=== PATIENT | male | born 1950 | race Caucasian/White ===

== ENCOUNTER → 2018-08-21 12:44 | Outpatient (CLI) | payer MEDICARE, SELFPAY ==
--- NOTE | 2018-08-21 14:02 | CDU_ITS ---
Reason For Study: Carotid bruit Rt. Velocities/BP Lt. Velocities/BP Prox CCA 78.0/19.3 cm/sec. Prox CCA 118.0/25.1 cm/sec. Mid CCA 97.9/22.3 cm/sec. Mid CCA 105.0/21.2 cm/sec. Dist CCA 104.0/29.9 cm/sec. Dist CCA 127.0/33.0 cm/sec. Prox ICA 236.0/44.0 cm/sec. Prox ICA 281.0/42.4 cm/sec. Mid ICA 141.0/21.2 cm/sec. Mid ICA 150.0/29.5 cm/sec. Dist ICA 99.0/15.7 cm/sec. Dist ICA 92.2/19.3 cm/sec. Rt. ICA/CCA = 2.4. Lt. ICA/CCA = 2.7. Prox ECA 237.0/28.3 cm/sec. Prox ECA 302.0/34.6 cm/sec. Rt. Vert. 25.1/6.7 cm/sec. Lt. Vert. 56.1/13.6 cm/sec. Right Extracranial There is heterogeneous, irregular atherosclerotic plaque noted in the right common carotid artery. There is heterogeneous, irregular atherosclerotic plaque noted in the right internal carotid artery. There is heterogeneous, irregular atherosclerotic plaque noted in the right external carotid artery. Antegrade flow is noted in the right vertebral artery. Left Extracranial There is heterogeneous, irregular atherosclerotic plaque noted in the left common carotid artery. There is heterogeneous, irregular atherosclerotic plaque noted in the left internal carotid artery. There is heterogeneous, irregular atherosclerotic plaque noted in the left external carotid artery. Antegrade flow is noted in the left vertebral artery. Procedure Carotid Duplex [id number]. Difficult exam due to depth of vessels. Exam performed in department. Interpretation Summary Moderate (50-69%) stenosis right extracranial internal carotid. Moderate (50-69%) stenosis left extracranial internal carotid. Flow within the vertebral arteries is antegrade bilaterally. Ordering Physician: Nani Santillan Referring Physician: Nani Santillan Performed By: Claudia Small RVT
== END ==
PROVIDERS: Family Provider Family Medicine; PCP Family Medicine; Referring Provider Physician Assistant Medical; Visit Provider Physician Assistant Medical
DX: R09.89 Other specified symptoms and signs involving the circulatory and respiratory systems (principal)
CPT/HCPCS: 93880

== ENCOUNTER → 2019-05-05 06:18 | Outpatient (CLI) | payer MEDICARE, SELFPAY ==
[2019-04-08 13:04] VITALS: BMI 38.5
--- NOTE | 2019-05-05 09:35 | STRESSREP ---
Stress Test Report Pharmacologic myocardial perfusion stress test. 69-year-old male with a history of bypass surgery in 2000 with a left internal mammary artery to the left anterior descending artery, saphenous vein graft to posterior descending artery and posterolateral branch of the circumflex artery. Stress protocol: Resting EKG demonstrates sinus bradycardia with a rate of 60 bpm and frequent premature ventricular complexes. Nonspecific ST changes are noted. 0.4 mg of regadenoson was infused per usual protocol followed by rapid intravenous saline flush injection. Continuous EKG monitoring was performed. The patient maintained sinus rhythm throughout the recording. The resting blood pressure was 152/78. The maximum heart rate was 85 bpm which was 55% of maximum predicted heart rate and maximum workload was [address]-T wave changes were noted throughout the infusion. Myocardial perfusion protocol. 14.4 mCi of technetium 99m sestamibi was injected at rest. 0.4 mg of regadenoson was infused per usual protocol. The peak infusion 44.7 mCi of technetium 99m sestamibi was injected stress images were obtained stress and rest images were reconstructed and compared in the short axis vertical and horizontal long axis. Gated images were also obtained for next Perfusion SPECT analysis: Review of the stress images demonstrate normal cardiac silhouette size. The mid anterior septal wall and basal to mid inferior wall on the stress images demonstrate reduced perfusion. The mid septum in the mid lateral wall appeared to be well perfused. The resting images demonstrate improvement in the inferior apical wall as well as the mid anteroseptal wall. The above is suggestive of multi territory ischemia involving the mid anterior septum and mid inferior wall. Gated SPECT analysis: The gated ejection fraction is noted to be 58%. Conclusion Abnormal pharmacologic myocardial perfusion stress test with evidence of mid anteroseptal and mid inferior ischemia. Previous basal inferior infarct noted. Preserved ejection fraction.
== END ==
PROVIDERS: Family Provider Family Medicine; PCP Family Medicine; Referring Provider Internal Medicine Cardiovascular Disease; Visit Provider Internal Medicine Cardiovascular Disease
DX: R06.00 Dyspnea, unspecified (principal); R06.02 Shortness of breath; Z95.1 Presence of aortocoronary bypass graft
CPT/HCPCS: 78452; 93017; A9500; A4216; J2785

== ENCOUNTER 2019-05-12 07:48 | Day surgery (SDC) | payer MEDICARE, SELFPAY ==
[2019-04-08 13:04] VITALS: BMI 38.5
--- NOTE | 2019-05-08 09:56 | RAD_ITS ---
STUDY: X-RAY CHEST REASON FOR EXAM: Male, 69 years old. PRE HEART CATH, INCREASED SHORTNESS OF BREATH TECHNIQUE: Frontal and lateral views of the chest. COMPARISON: None. FINDINGS: The lungs are clear and expanded. There is no demonstrated pleural abnormality. Normal size heart. Previous CABG. Implanted monitoring coordinator is seen. Normal mediastinum and josé. Normal visualized pulmonary arteries. Normal visualized aortic arch and descending thoracic aorta. There are diffuse degenerative changes of the visualized thoracic spine. Normal visualized ribs, clavicles, and shoulders. There is no demonstrated abnormality of the visualized soft tissue structures of the upper abdomen. RAD/Chest PA and Lateral IMPRESSION: No acute chest disease. Electronically Signed: Tommy Gusman MD at 17:08 EDT , Service support ,
[2019-05-08 11:13] LABS: Anion Gap 5 (5-15); BUN 15 mg/dL (7-18); BUN/Creat Ratio 9.7 RATIO (10-20); Calcium,Total 8.7 mg/dL (8.5-10.1); Chloride 108 mmol/L (98-107); Creatinine, Serum 1.54 mg/dL (0.70-1.30); EST Glomerular Filtration Rate 48 mL/min (>60); Est Glom Filt Rate - Afr Amer 58 mL/min (>60); Glucose 133 mg/dL (74-106); Potassium 4.1 mmol/L (3.5-5.1); Sodium Level 138 mmol/L (136-145)
[2019-05-08 11:16] LABS: Absolute Lymphocyte Count 1.92 X10^3/uL (0.83-4.51); Absolute Neutrophil Count 3.2 X10^3/uL (2.0-7.7); Basophil# 0.04 X10^3/uL; Basophil% 0.7 % (0-1); Eosinophil# 0.08 X10^3/uL; Eosinophils% 1.3 % (0-5); Hematocrit 45.1 % (40-54); Hemoglobin 14.2 g/dL (13.0-16.5); Lymphocyte # 1.92 X10^3/ul (4.0); Lymphocyte % 31.2 % (19-41); Mean Corp Hgb Conc 31.5 g/dL (32-36); Mean Corpuscular Hgb 29.6 pg (27.0-32.0); Mean Platelet Vol. 10.4 fl (6.2-12.0); Monocyte% 14.6 % (0-10); NRBC Flagged by Analyzer 0 % (0-5); Neutrophil # 3.18 X10^3/uL (2.7-7.7); Neutrophil % 51.7 % (47-70); Platelet Count 244 K/mm3 (150-450); RBC Distribution Width CV 14.3 % (11.6-14.6); RBC Distribution Width SD 48.8 fl (35.1-43.9); White Blood Count 6.2 K/mm3 (4.4-11.0)
[2019-05-08 11:52] LABS: BNP,B-Type NATRIURETIC PEPTIDE 88.6 pg/mL (0-100)
[2019-05-12] VITALS (20 sets, daily range): BP systolic 113–152; BP diastolic 51–94; PULSE 64–81; RESP 13–23; TEMP 36.6–36.7; O2SAT 94–100; BMI 37.5; BMI 38.9
--- NOTE | 2019-05-12 08:03 | HP.PCM_ITS ---
Problem List (1) Abnormal stress test Status: Acute (2) Dyspnea Status: Acute History of Present Illness Date of Admission: 05/12/19 History of Present Illness Details: YANET MARION, is a 69 M who presents to the office today for a diag nostic heart cath for an abnormal stress test. He underwent a stress test on 05/05/2019 for increased SOB with exertion. Stress test demonstrated gated ejection fraction is noted to be 58%. Abnormal pharmacologic myocardial perfusion stress test with evidence of mid anteroseptal and mid inferior ischemia. Previous basal inferior infarct noted. Preserved ejection fraction. He has a history of coronary artery disease status post coronary bypass surgery in 2000 with a left internal mammary artery to the left anterior descending artery saphenous vein graft to posterior descending artery and posterolateral branch of the circumflex artery. In 2010 he presented with chest discomfort and underwent angioplasty and stenting of the proximal left circumflex artery and first obtuse marginal branch. Past Medical History Past Medical History (Chronic Problems): Chronic Problems (Last Reviewed 04/08/19 @ 15:19 by Ryan Osuna MD) Bilateral carotid artery disease (Chronic) Moderate (50-69%) stenosis right extracranial internal carotid. Moderate (50- 69%) stenosis left extracranial internal carotid. Flow within the vertebral arteries is ant egrade bilaterally. 08/10/2018 Atherosclerosis of coronary artery bypass graft without angina pectoris (Chronic) [id number] LCx w/ 2.5 x 23 mm Promus Stent and POBA Mid LCx, JD-Ostial OM1 w/ 2.5 x 12 mm Promus Stent 05/08/2011; CABG x 3 SHINE-LAD, SVG-Left PLB, SVG-RPDA 07/19/2001 Bradycardia (Chronic) Paroxysmal ventricular tachycardia (Chronic) Atherosclerotic heart disease of [place] coronary artery without angina pectoris (Chronic) [id number] LCx w/ 2.5 x 23 mm Promus Stent and POBA Mid LCx, JD-Ostial OM1 w/ 2.5 x 12 mm Promus Stent 05/08/2011; CABG x 3 SHINE-LAD, SVG-Left PLB, SV G-RPDA 07/19/2001 CKD (chronic kidney disease), stage III (Chronic) HLD (hyperlipidemia) (Chronic) Medical History: Medical History (Last Reviewed 04/08/19 @ 15:19 by Ryan Osuna MD) Bilateral carotid artery disease (Chronic) I77.9 Moderate (50-69%) stenosis right extracranial internal carotid. Moderate (50- 69%) stenosis left extracranial internal carotid. Flow within the vertebral arteries is antegrade bilaterally. 08/10/2018 Atherosclerosis of coronary artery bypass graft without angina pectoris (Chronic) I25.810 JHN-WEU-Ynij LCx w/ 2.5 x 23 mm Promus Stent and POBA Mid LCx, JD-Ostial OM1 w/ 2.5 x 12 mm Promus Stent 05/08/2011; CABG x 3 SHIEN-LAD, SVG-Left PLB, SVG-RPDA 07/19/2001 Bradycardia (Chronic) R00.1 Paroxysmal ventricular tachycardia (Chronic) I47.2 Atherosclerotic heart disease of [place] coronary artery without angina pectoris (Chronic) I25.10 ZGB-GAI-Beds LCx w/ 2.5 x 23 mm Promus Stent and POBA Mid LCx, JD-Ostial OM1 w/ 2.5 x 12 mm Promus Stent 05/08/2011; CABG x 3 SHINE-LAD, SVG-Left PLB, SVG-RPDA 07/19/2001 CKD (chronic kidney disease), stage III (Chronic) HLD (hyperlipidemia) (Chronic) E78.5 Brain aneurysm I67.1 Carotid bruit R09.89 Essential (primary) hypertension I10 Obesity E66.9 Obstructive sleep apnea G47.33 PVC's (premature ventricular contractions) I49.3 Type 2 diabetes mellitus E11.9 Syncope R55 Abnormal electrocardiogram (Inactive) R94.31 Allergies atorvastatin [From Lipitor] Adverse Reaction (Verified 04/08/19 13:05) Diarrhea Contrast DYE Allergy (Uncoded 04/08/19 15:05) SOB/Hives Home Medications: Ambulatory Orders Medication Instructions Recorded allopurinol 100 mg tablet 100 mg PO QDAY 02/04/18 amlodipine 10 mg tablet 10 mg PO QDAY 02/04/18 aspirin 81 mg tablet,delayed 81 mg PO QDAY 02/04/18 release clopidogrel 75 mg tablet 75 mg PO QDAY 02/04/18 colchicine 0.6 mg capsule See Rx Instructions PO BID 02/04/18 fluoxetine 10 mg tablet 10 mg PO QDAY 02/04/18 isosorbide mononitrate ER 30 mg 15 mg PO QAM tab 02/04/18 tablet,extended release 24 hr lisinopril 20 mg tablet 20 mg PO QDAY 02/04/18 nitroglycerin 0.4 mg sublingual 0.4 mg SUBLINGUAL Q5-15M PRN 02/04/18 tablet pioglitazone 15 mg tablet 15 mg PO QDAY 02/04/18 pravastatin 80 mg tablet 80 mg PO QHS 02/04/18 fluticasone propionate 50 1 spray INTRANASAL QDAY 02/05/18 mcg/actuation nasal spray,suspension glimepiride 4 mg tablet See Rx Instructions PO UD 02/05/18 metoprolol tartrate 25 mg tablet 12.5 mg PO BID #90 tab 04/09/19 Surgical History: Surgical History (Last Reviewed 04/08/19 @ 15:19 by Ryan Osuna MD) History of coronary artery stent placement (Resolved) Onset Date: 05/08/11 Z95.5 coronary stenting 1994, [id number] LCx w/ 2.5 x 23 mm Promus Stent and POBA Mid LCx, JD-Ostial OM1 w/ 2.5 x 12 mm Promus Stent 05/08/2011 H/O coronary artery bypass surgery (Resolved) Onset Date: 07/19/01 Z95.1 CABG x 3 SHINE-LAD, SVG-Left PLB, SVG-RPDA 07/19/2001 History of loop recorder Onset Date: 2011 Z98.890 Surgical History: noncontributory Smoking Status: Former smoker Review of Systems Constitutional: Denies: Chills, Fever, Weight Change HEENT: Denies: Head Aches, Sinus Congestion, Sinus Drainage Cardiovascular: Denies: Chest Pain Respiratory: Reports: Shortness of Breath, Shortness of breath at rest, Shortness of breath upon exertion Gastrointestinal: Denies: Abdominal Pain Musculoskeletal: Reports: Joint Pain, Muscle pain Neurological: Denies: Numbness, Tingling, Focal weakness VTE Information - Inpt Only VTE Present on Admission: No Patient Problems: Active and Suspected Problems (Last Reviewed 04/08/19 @ 15:19 by Ryan Osuna MD) Abnormal stress test (Acute) - Physical Exam General: Alert, Oriented x3, Cooperative HEENT: Atraumatic, PERRLA, EOMI, Normocephalic Neck: Supple, No JVD, Negative Carotid Bruits Lungs: Clear to auscultation, Normal air movement Cardiovascular: Regular rate, No murmurs Abdomen: Bowel Sounds Present, Soft, Non Tender Extremities: No edema, Capillary Refill Less than 3 Seconds Skin: No rashes, No breakdown Musculoskeletal: No Tenderness to Palpation of Joints or Extremities Neurological: Cranial nerves II-XII grossly intact Psych/Mental Status: Normal Affect, Appropriate Body Mass Index (BMI) 38.5 Assessment/Plan All Active Problems (Last Reviewed 04/08/19 @ 15:19 by Ryan Osuna MD) Abnormal stress test (Acute) Dyspnea (Acute) History of coronary artery stent placement (Resolved 05/08/11) H/O coronary artery bypass surgery (Resolved 07/19/01) Assessment & Plan 1. Abnormal stress test: Pt is agreeable to proceed with a diagnostic heart cath. He does have a history of CAD with bypass surgery in 2000. Follow up will be based on heart cath results. He will continue with aggressive medical management. 2. HTN: Pt will continue with current medical management 3. Hyperlipidemia: pt will continue to have labs followed and will continue with moderate intensity statin
--- NOTE | 2019-05-12 11:08 | CL.D_ITS ---
Patient Name: YANET MARION Study Date: 05/12/2019 Performing: Ryan Osuna MD Ht: 70 inches 177.8 cm : 1950 Wt: 261.29 lbs 118.52 kg Age: 69 Gender: male BSA: 2.34 PROCEDURE(S) PERFORMED [id number]/CABG [id number] AND/OR PTCA, SINGLE GRAFT CLINICAL PROFILE AND INDICATIONS Indications: Suspected CAD Heart Failure: None Stress/Imaging Date: 05/02/2019Stress Test with SPECT MPI: Positive Intermediate Risk CAD Presentations: Stable angina. CONCLUSIONS Patient with known previous bypass surgery with patent left internal mammary artery to the left anter ior descending artery and saphenous vein graft to right coronary artery with proximal high-grade sten osis. Graft to the circumflex artery is presumed to be occluded. RECOMMENDATIONS Referred for immediate PCI DESCRIPTION OF PROCEDURE The patient arrived to the procedure lab. The risks and benefits of the procedure as well as a full d escription of our services here and current unavailability of surgical backup were fully explained to the patient and/or their significant other prior to the catheterization. The Timeout was completed, verifying the correct patient and procedure. The patient's procedural site was prepped and draped in the usual fashion. Local anesthetic was given subcutaneously to right groin region with Lidocaine 2%. Using a modified Seldinger technique, arterial access was obtained via the right femoral artery, a 5 Fr sheath was inserted. Left Coronary Artery selective angiography was performed in multiple views u sing a 5 Fr. JL4 catheter. Right Coronary Artery selective angiography was then performed in multiple views using a 5 Fr. 3DRC (Wale) catheter. Saphenous Vein graft to the RPDA selective angiography was performed in multiple views using a 5 Fr. 3DRC (Wale) catheter. Saphenous Vein graft to the Circumflex selective angiography was performed in multiple views using a 5 Fr. 3DRC ([facility]) catheter-Occluded. Left internal mammary artery graft to the LAD selective angiography was per formed in multiple views using a 5 Fr. 3DRC (Wale) catheter. Left Ventriculography was performed in GREEN projection using a 5 Fr. Pigtail catheter. CORONARY ANGIOGRAPHY DOMINANCE: Right Dominant LEFT HEART ASSESSMENT Left Ventricular Ejection Fraction: by Echo 55 % Normal Left Ventricular systolic function LEFT MAIN: Angiographically normal LEFT ANTERIOR DESCENDING ARTERY: MID LAD: is occluded CIRCUMFLEX ARTERY: Mild luminal irregularities less than 30% OM 1: Ostial - Moderate luminal irregularities up to 50% RIGHT CORONARY ARTERY: PROX RCA: is occluded GRAFTS: SHINE graft to the Mid LAD is patent Saphenous Vein graft to the RPDA has a proximal lesion of 95 % Saphenous Vein graft to the Distal CIRC is totally occluded COMPLICATIONS PROCEDURE MEDICATIONS Versed 1 mg IV Versed 1 mg IV Fentanyl 25 mcg IV Oxygen: 2 L/min via nasal cannula Benadryl 50 mg IV @ 05/12/2019 09:59:23 Heparin 6000 unit(s) IV 05/12/2019 10:43:54 Nitro 200 mcg IC 05/12/2019 11:03:51 Solu-medrol 125 mg IV 05/12/2019 09:59:30 IV Bolus: .9 NaCl ml total 05/12/2019 10:50:07 SUMMARY OF HEMODYNAMIC DATA Time AIR REST ECG 08:29:49 AO 111/71 (89) SA 10:20:02 Signed By Ryan Osuna MD On 05/12/2019 11:09:25 AM Signed By Ryan Osuna MD On 05/12/2019 11:07:42 AM Ryan Osuna MD
--- NOTE | 2019-05-12 11:31 | CL.I_ITS ---
Patient Name: YANET MARION Study Date: 05/12/2019 Performing: Arnie Morocho MD Ht: 70 inches 177.8 cm : 1950 Wt: 261.29 lbs 118.52 kg Age: 69 Gender: male BSA: 2.34 PROCEDURE(S) PERFORMED [id number] AND/OR PTCA, SINGLE GRAFT CLINICAL PROFILE AND CO-MORBIDITIES Indications: Suspected CAD, New Onset Angina <= 2 months, Stable Known CAD Heart Failure: None Stress/Imaging Date: 05/02/2019 Stress Test with SPECT MPI: Positive Intermediate Risk Angina Classification Anginal Classification w/in 2 Weeks: CCS III CAD Presentations: Stable angina. Unstable angina. Other: Dyspnea on exertion Comorbidities/Risk Factors: Hypertension Dyslipidemia Prior CABG Diabetes Mellitus: Diabetes Therapy: Oral CONCLUSIONS Successful PTCA/JD with a 3.0 x 38 Promus Synergy, post dilated proximally and distally with a 3.5 x 8 NC Balloon; 85%-->0%, no dissection. RECOMMENDATIONS Highly recommend quitting all tobacco products Follow up with primary customs patrol officer Risk factor modification ASA Indefinitley Plavix for at least 12 months Routine post interventional care Refer for Outpatient Cardiac Rehab Manual sheath removal per protocol Follow up with Dr. Osuna Successful Mynx Control closure of RFA. DESCRIPTION OF PROCEDURE The patient arrived to the procedure lab. The risks and benefits of the procedure as well as a full d escription of our services here and current unavailability of surgical backup were fully explained to the patient and/or their significant other prior to the catheterization. The Timeout was completed, verifying the correct patient and procedure. The patient's procedural site was prepped and draped in the usual fashion. Local anesthetic was given subcutaneously to right groin region with Lidocaine 2% Using a modified Seldinger technique,arterial access was obtained via the right femoral artery, a 5Fr sheath was inserted. Left Coronary Artery selective angiography was performed in multiple views usin g a 5 Fr. JL4 catheter. Right Coronary Artery selective angiography was then performed in multiple vi ews using a 5 Fr. 3DRC (Wale) catheter. Saphenous Vein graft to the RPDA selective angiography wa s performed in multiple views using a 5 Fr. 3DRC (Wale) catheter. Saphenous Vein graft to the Circumflex selective angiography was performed in multiple views using a 5 Fr. 3DRC (Wale) catheter-Occluded. Left internal mammary artery graft to the LAD selective angiography was performed in multiple views using a 5 Fr. 3DRC (Wale) catheter. Left Ventriculography was performed in GREEN projection using a 5 Fr. Pigtail catheter.The images were reviewed and options discussed. A decision was then made to proceed with an Intervention, IVUS or other adjunct procedure. Arterial sheath was exchanged for a 6 Fr Sheath. MP 2 Guide catheter was inserted and engaged int o the SVG to the Rt PDA. BMW Guide wire was advanced to the Right PDA. Emerge 2.00x12 Balloon cathete r was inserted. PTCA balloon inflated at 6 atms for 8 secs. small vessel filter wire Guide wire was a dvanced to the Right PDA. Synergy 3.00x38 Drug Eluting stent was inserted. Angiogram performed post s tent deployment. NC Emerge 3.50x8 Balloon catheter was inserted. PTCA balloon inflated at 12 atms for 7 secs. PTCA balloon inflated at 5 atms for 9 secs. PTCA balloon inflated at 5 atms for 6 secs. PTCA balloon inflated at 6 atms for 8 secs. Angiogram performed post balloon dilatation. Contrast was inj ected through the sheath and the Right Iliac and Femoral artery were assessed for possible closure de vice. The arterial sheath was pulled and a Mynx closure device was deployed for hemostasis INTERVENTION INFORMATION LESION SITE: Vein > to Rt PDA Segment Number: 4-Right posterior descending artery segment - rPDA , L esion Location: Body Lesion Complexity: High/C, lesion at bifurcation: No, thrombus present: No, lesion length: 38 mm, cul prit lesion: Yes Pre Stenosis: 85 % Pre intervention JUMA flow: 3 PROCEDURE: Drug Eluting Stent with pre and post dilatation Post Stenosis: 0 % Post intervention JUMA flow: 3 COMPLICATIONS No Complications PROCEDURE MEDICATIONS Versed 1 mg IV Versed 1 mg IV Fentanyl 25 mcg IV Oxygen: 2 L/min via nasal cannula Benadryl 50 mg IV @ 05/12/2019 09:59:23 Heparin 6000 unit(s) IV 05/12/2019 10:43:54 Nitro 200 mcg IC 05/12/2019 11:03:51 Solu-medrol 125 mg IV 05/12/2019 09:59:30 IV Bolus: .9 NaCl 500 ml total 05/12/2019 10:50:07 SUMMARY OF HEMODYNAMIC DATA Time AIR REST ECG 08:29:49 AO 111/71 (89) SA 10:20:02 Signed By Arnie Morocho MD On 05/12/2019 11:30:23 Arnie Morocho MD
--- NOTE | 2019-05-12 11:32 | EKG12_ITS ---
Test Reason : AM EKG Blood Pressure : / mmHG Vent. Rate : 084 BPM Atrial Rate : 084 BPM P-R Int : 248 ms QRS Dur : 114 ms QT Int : 376 ms P-R-T Axes : 053 057 137 degrees QTc Int : 444 ms Sinus rhythm with 1st degree A-V block Inferior infarct , age undetermined ST & T wave abnormality, consider lateral ischemia Abnormal ECG When compared with ECG of 12-MAY-2019 11:50, MANUAL COMPARISON REQUIRED, DATA IS UNCONFIRMED Confirmed by MAX GARCES, RADHA ([id number]), online editor FRITZ ZHANG ([id number]) on 05/16/2019 9:57:23 AM Referred By: Ryan Osuna Confirmed By:MARGARITA SANTANA MD
[2019-05-12] MEDS: 0.9% Normal Saline 1,000 ML 150 ML IV (11:45)
--- NOTE | 2019-05-12 13:25 | CRPHASE1_ITS ---
Patient Communication PHII Cardiac Rehab Discussed with Patient:: Yes Guide to Cardiac Rehab Given to Patient:: Yes Cardiac Rehab Facility Choice List Given to Patient:: Yes Choice Program [facility] CR PHII:: Communication Given to CR, Refer to [facility] Choice Program Other:: Communication Given to CR, With permission faxed order and referral information [employer]:: Arnie Morocho Refer Phase II Cardiac Rehab:: Yes Sessions:: 36 sessions - 3 days/wk, 12 weeks Risk Factors/Lifestyle Smoking Status: Former smoker Hx Hypertension: Yes Hx Diabetes Mellitus Type 1: No Hx Diabetes Mellitus Type 2: Yes Hx Metabolic Disorders: Yes Hx Dyslipidemia: Yes Hx Obesity: Yes Height: 5 ft 10 in - BMI 39.0 Stress: Home/Family Risk Factor for Sedentary Lifestyle: Moderate Risk Family History: Family History (Last Reviewed 04/08/19 @ 15:19 by Ryan Osuna MD) Father CAD (coronary artery disease) Grandfather CAD (coronary artery disease) Past Cardiac Illness: Coronary Artery Disease, Previous PCI w/Stent, Coronary Artery Bypass Graft Phase I Education Given On:: Orange, Nutrition, Antiplatelet medication, Diabetes - Type II Issues Affecting Care:: None Knowledge of Condition:: Yes Learning Preferences: Verbal, Written - AND SON AT BEDSIDE Hospital Course Presenting Symptoms:: ABNORMAL STRESS Medical/Surgical History AR:: No CAD:: Yes Cardiomyopathy:: No MASHA:: Yes Diabetes:: Yes Diabetes Type I:: No Diabetes Type II:: Yes Hypertension:: Yes Dyslipidemia:: Yes Arrhythmias:: Yes - PVC'S Renal:: Yes - STAGE III KIDNEY DISEASE CABG: Yes PTCA:: Yes Discharge/Home/Social Eval Discharge Disposition: Home Marital Status: Cardiac Rehabilitation Info Cardiac Rehabilitation Program Information: Cardiac Rehabilitation is important for patients like you who are recovering from a heart problem. Cardiac rehabilitation programs are recognized as integral to the continued care of the patient with coronary heart disease. The cardiac rehabilitation program is designed to optimize a patient's physical, psychological, and social functioning. Health animal care service worker work in cardiac rehabilitation programs and assist you with getting the treatments you need to get stronger and healthier - like exercise, healthy eating habits, and medications. Cardiac rehabilitation has been show to help people with heart problems live longer and have better life enjoyment than people who do not go to cardiac rehabilitation. Please contact the Cardiac Rehabilitation Program at [facility] at in two weeks if you have not heard from them.
--- NOTE | 2019-05-12 13:32 | CRPH1.INST_ITS ---
General Education CAD and cardiac anatomy and function:: Patient communicates acknowledgment, Family communicates acknowledgment Explanation of diagnoses and procedures:: Patient communicates acknowledgment, Family communicates acknowledgment Sign/Symptoms of KS:: Patient communicates acknowledgment, Family communicates acknowledgment Antiplatelet therapy: Family communicates acknowledgment Proper use of NTG-SL: Not instructed Emergency procedures and activation of EMS: Patient communicates acknowledgment, Family communicates acknowledgment Compliance of all prescribed medications: Patient communicates acknowledgment, Family communicates acknowledgment - AND SON AT BEDSIDE Smoking Recommendations Include:: Previous smoker; encourage continued cessation Nicotine/Smoking Response Code:: Patient communicates acknowledgment, Family communicates acknowledgment Dyslipidemia Patient Dyslipidemia Risk Factors Are:: Total Cholesterol, Triglycerides, HDL, LDL Recommendations Include:: Lipid profile not available, Reviewed NCEP/ATP guidelines, Therapeutic Lifestyle Change dietary guidelines Dyslipidemia Response Code:: Patient communicates acknowledgment, Family communicates acknowledgment Overweight/Obesity Patient Overweight/Obesity Risk Factors Are:: Obesity - > or = 30 Recommendations Include:: Weight loss of 5-10%, Reduced calorie diet, Exercise 5-7 times/week Overweight/Obesity:: Patient communicates acknowledgment, Family communicates acknowledgment Hypertension Recommendations Include:: BP <130/80 if diabetic, DASH dietary guidelines, Decrease/maintain normal body weight, Moderation of ETOH Hypertension:: Patient communicates acknowledgment, Family communicates acknowledgment Heart Disease Patient Heart Disease Risk Factors Are:: Previous cardiac event Recommendations Include:: Educated family members of their risk, Educated family members of importance of prevention of heart disease Heart Disease Response Code:: Patient communicates acknowledgment, Family comm unicates acknowledgment Diabetes Patient Diabetes Risk Factors Are:: Elevated blood sugars Recommendations Include:: Maintain fasting blood sugars 70-110 md/dL, Maintain HgbA1c of 6% or less, Monitor blood sugar as prescribed, Diabetic dietary guidelines, Decrease/maintain body weight Diabetes:: Patient communicates acknowledgment, Family communicates acknowledgment Metabolic Syndrome Patient Metabolic Syndrome Risk Factors Are [3 of 5]:: Fasting blood sugar > 100 mg/dL, Waist circumference > 35 [female] or 40 [male], High triglyceride >150, Hypertension, Low HDL <40 [male] or < 50 [female] Recommendations Include:: Reinforce compliance to risk factor modifications, Patient is diabetic, Encouraged follow-up with Primary Care Physician Metabolic Syndrome Response Code:: Patient communicates acknowledgment, Family communicates acknowledgment Sedentary Patient Sedentary Risk Factors Are:: Lack of regular exercise Recommendations Include:: Aerobic exercise 5-7 times/week for 20-30 minutes continuously, Benefits of regular exercise, Discussed home walking program, Monitored Outpatient Cardiac Rehab Sedentary Response Code:: Patient communicates acknowledgment, Family communicates acknowledgment Stress Recommendations Include:: Identification of stressors, and assessment of coping skills, Stress management techniques Stress Response Code:: Patient communicates acknowledgment, Family communicates acknowledgment
[2019-05-12 14:05] LABS: ACT Activated Clotting Time 186 sec (74-137)
[2019-05-12] MEDS: Glimepiride 2 MG Tablet PO (17:48)
[2019-05-12 17:55] LABS: Bedside Glucose 349 mg/dL (70-110)
[2019-05-12] MEDS: Insulin Lispro 100 UNIT/ML INSULN.PEN SC ×2 (18:37→21:19)
[2019-05-12] MEDS: Metoprolol Tartrate 25 MG Tablet 12.5 MG PO (21:18)
[2019-05-12] MEDS: Pravastatin 80 MG Tablet PO (21:19)
[2019-05-13] VITALS (11 sets, daily range): BP systolic 133–160; BP diastolic 50–84; PULSE 83–95; RESP 13–20; TEMP 36.6–37.2; O2SAT 93–98
[2019-05-13 00:01] LABS: Bedside Glucose 371 mg/dL (70-110)
[2019-05-13 02:11] LABS: Bedside Glucose 264 mg/dL (70-110)
[2019-05-13 04:39] LABS: Hematocrit 41.1 % (40-54); Hemoglobin 13.3 g/dL (13.0-16.5); Mean Corp Hgb Conc 32.4 g/dL (32-36); Mean Corpuscular Volume 92.6 fL (80-94); Mean Platelet Vol. 10.4 fl (6.2-12.0); Platelet Count 226 K/mm3 (150-450); RBC Distribution Width CV 13.7 % (11.6-14.6); RBC Distribution Width SD 46.6 fl (35.1-43.9); Red Blood Count 4.44 M/mm3 (4.6-6.2); White Blood Count 11.5 K/mm3 (4.4-11.0)
[2019-05-13 04:55] LABS: Anion Gap 10 (5-15); BUN 25 mg/dL (7-18); BUN/Creat Ratio 14.9 RATIO (10-20); Calcium,Total 8.4 mg/dL (8.5-10.1); Chloride 105 mmol/L (98-107); Cholesterol 165 mg/dL (200); Creatinine, Serum 1.68 mg/dL (0.70-1.30); EST Glomerular Filtration Rate 44 mL/min (>60); Est Glom Filt Rate - Afr Amer 53 mL/min (>60); Estimated Creatinine Clearance 44.06 ml/min; Glucose 253 mg/dL (74-106); High Density Lipoprotein 35 mg/dL; Potassium 4.3 mmol/L (3.5-5.1); Sodium Level 139 mmol/L (136-145); Triglycerides 117 mg/dL; Very Low Density Lipoprotein 23 mg/dL (5-40)
--- NOTE | 2019-05-13 06:38 | PN.CARD_ITS ---
Subjectve: Patient seen and evaluated. Had uneventful night. No chest pain or shortness of breath or leg pain. Objective: Vital Signs Temp Pulse Resp BP Pulse Ox 98.4 F 89 17 145/84 H 96 05/13/19 04:00 05/13/19 06:00 05/13/19 06:00 05/13/19 06:00 05/13/19 06:00 Oxygen Delivery Method Room Air Weight: 266 lb 5.094 oz Body Mass Index (BMI) 38.9 Intake and Output for Last 24 Hours 05/11/19 05/12/19 05/13/19 23:59 23:59 23:59 Intake Total 250 / 610 600 / 600 Output Total 350 / 350 800 / 800 Balance -100 / 260 -200 / -200 General: Awake, Alert, Oriented x 3 HEENT: PERRL, EOMI, Sclera Non Icteric Neck: Supple, Good ROM, No Lymph Node Enlargement Lungs: Clear to auscultation Cardiovascular: Regular Rhythm, Normal S1, Normal S2, No Murmurs, No Rubs, No Gallops Vascular: No Carotid Bruits, Normal Femoral Pulses, Normal Radial Pulses, Normal Dorsalis Pedal Pulse, Normal Posterior Tibial Pulses Abdomen: Bowel Sounds Present, Soft, Non Tender, No HSM, No Organomegaly Extremities: No Cyanosis, No Clubbing, No edema Musculoskeletal: No Erythema Skin: No Rashes Lymphatic: No Lymph Node Enlargement Neurological: No Focal Motor or Sensory Deficit Psych/Mental Status: Appropriate 05/13/19 04:20: WBC 11.5 H, RBC 4.44 L, Hgb 13.3, Hct 41.1, MCV 92.6, MCH 30.0, MCHC 32.4, Plt Count 226, MPV 10.4 05/13/19 04:20: Sodium 139, Potassium 4.3, Chloride 105, Carbon Dioxide 24.0, Anion Gap 10, BUN 25 H, Creatinine 1.68 H, Est GFR (MDRD) Af Amer 53 L, Est GFR (MDRD) Non-Af 44 L, BUN/Creatinine Ratio 14.9, Glucose 253 H, Calcium 8.4 L, Triglycerides 117, Cholesterol 165, LDL Cholesterol 107, VLDL Cholesterol 23, HDL Cholesterol 35 L Rhythm: EKG: ECHO: Stress Test: Cardiac Cath: PCI: CT Surgery: Holter monitor: EPS: PPM: CXR: Chest CT Scan: Medical Necessity - Tobacco Use Smoking Status: Former smoker Tobacco Use: Non-smoker Assessment/Plan 1. Coronary artery disease * Patient is status post cardiac catheterization and angioplasty of the saphenous vein graft to the right coronary artery. He tolerated the procedure well. There have been no EKG changes or enzymatic abnormalities. His creatinine remains fairly stable. He will continue with liberal IV and p.o. fluid. He will be discharged today to be followed up as an outpatient. Cardiac rehabilitation was started as an outpatient.
--- NOTE | 2019-05-13 06:42 | PCM.DC.CCA ---
Discharge Diet: No Restrictions - You may continue your normal diet., Low fat/ Low Cholesterol Lifting Restrictions: 10 pounds and also avoid any pushing or pulling for 3 days after your test. Additional Activity Instructions:: You must have someone drive you home. Do not drive until instructed by your doctor. You must have someone stay with you all night after your test. Rest in bed or on the couch until the next morning. Limit the number of times you go up and down stairs the day of your test. Apply pressure to the puncture site if you sneeze or cough. Call your doctor if your incision/area has: Increased Pain/ Swelling, Increased Redness, Foul Smelling Discharge, Swelling at the incision site Call your doctor if you observe: Fever of 101 or Higher Additional Dressing/Incision Instructions:: Keep the dressing (bandage) on until the next morning. You may then shower, but do not take a tub bath for 5 days after your test. It is normal to have some tenderness and discomfort at the puncture site. Sometimes bruising also occurs. However, if pain, numbness, or coldness occurs below the puncture site (in your leg, toes, arms or fingers) call your doctor at once. You may have a small, marble sized knot at the puncture site. This is normal. Do not rub it. It will go away in 4-6 weeks. Bleeding can occur from the area where the puncture was done. Blood may spurt or drip from the site. If blood spurts, apply pressure right away to stop bleeding and call 911. Although rare, bleeding into the tissue (hematoma) can also occur. If this happens, a large, firm area goose egg under the skin will appear. If any of these occur, lie down as flat as you can and have someone apply firm pressure to the cath site with a gauze pad or a clean washcloth for 10-15 minutes. Call 911 or go to the Emergency Department. Allergies/Adverse Reactions: Allergies atorvastatin [From Lipitor] Adverse Reaction (Verified 04/08/19 13:05) Diarrhea Contrast DYE Allergy (Uncoded 04/08/19 15:05) SOB/Hives Medications to take at Discharge allopurinol 100 mg tablet 100 mg PO QDAY 02/04/18 amlodipine 10 mg tablet 10 mg PO QDAY 02/04/18 aspirin 81 mg tablet,delayed release 81 mg PO QDAY 02/04/18 clopidogrel 75 mg tablet 75 mg PO QDAY 02/04/18 colchicine 0.6 mg capsule See Rx Instructions PO BID 02/04/18 fluoxetine 10 mg tablet 10 mg PO QDAY 02/04/18 isosorbide mononitrate ER 30 mg tablet,extended release 24 hr 15 mg PO QAM tab 02/04/18 lisinopril 20 mg tablet 20 mg PO QDAY 02/04/18 nitroglycerin 0.4 mg sublingual tablet 0.4 mg SUBLINGUAL Q5-15M PRN 02/04/18 pioglitazone 15 mg tablet 15 mg PO QDAY 02/04/18 pravastatin 80 mg tablet 80 mg PO QHS 02/04/18 fluticasone propionate 50 mcg/actuation nasal spray,suspension 1 spray INTRANASAL QDAY 02/05/18 glimepiride 4 mg tablet See Rx Instructions PO UD 02/05/18 metoprolol tartrate 25 mg tablet 12.5 mg PO BID #90 tab 04/09/19 Orders to be completed after discharge: Phase II, Outpatient Cardiac Rehab Location: None Selected Primary Care Physician: Fransisco Bourne MD [Primary Care Provider] - Test Results: Test results from this visit will be discussed in further detail at your follow-up appointment, if applicable. Please Follow Up With: [facility] and[facility]ero Proposed Discharge Date: 05/13/19 Cardiac Rehabilitation Info Cardiac Rehabilitation Program Information: Cardiac Rehabilitation is important for patients like you who are recovering from a heart problem. Cardiac rehabilitation programs are recognized as integral to the continued care of the patient with coronary heart disease. The cardiac rehabilitation program is designed to optimize a patient's physical, psychological, and social functioning. Health regular senior care provider work in cardiac rehabilitation programs and assist you with getting the treatments you need to get stronger and healthier - like exercise, healthy eating habits, and medications. Cardiac rehabilitation has been show to help people with heart problems live longer and have better life enjoyment than people who do not go to cardiac rehabilitation. Please contact the Cardiac Rehabilitation Program at [facility] at in two weeks if you have not heard from them.
[2019-05-13] MEDS: Glimepiride 4 MG Tablet PO (07:21)
[2019-05-13] MEDS: Metoprolol Tartrate 25 MG Tablet 12.5 MG PO (07:21)
[2019-05-13] MEDS: Insulin Lispro 100 UNIT/ML INSULN.PEN SC (07:21)
[2019-05-13] MEDS: Aspirin E.C. 81 MG Tablet PO (07:22)
[2019-05-13] MEDS: Pioglitazone Hydrochloride 15 MG Tablet PO (07:22)
[2019-05-13] MEDS: Isosorbide Mononitrate 30 MG Tablet 15 MG PO (07:22)
[2019-05-13] MEDS: Lisinopril 20 MG Tablet PO (07:22)
[2019-05-13] MEDS: amLODIPine 10 MG Tablet PO (07:22)
[2019-05-13] MEDS: Allopurinol 100 MG Tablet PO (07:23)
[2019-05-13] MEDS: Clopidogrel Bisulfate 75 MG Tablet PO (07:23)
[2019-05-13] MEDS: FLUoxetine 10 MG Capsule PO (07:24)
--- NOTE | 2019-05-13 10:00 | EKG12_ITS ---
Test Reason : S/P PCI Blood Pressure : / mmHG Vent. Rate : 064 BPM Atrial Rate : 064 BPM P-R Int : 216 ms QRS Dur : 120 ms QT Int : 442 ms P-R-T Axes : 048 068 138 degrees QTc Int : 455 ms Sinus rhythm with 1st degree A-V block with occasional Premature ventricular complexes ST & T wave abnormality, consider lateral ischemia Abnormal ECG When compared with ECG of 08-APR-2012 14:55, Premature ventricular complexes are now Present QRS duration has increased Confirmed by MAX GARCES, RADHA ([id number]), general expeditor FRITZ ZHANG ([id number]) on 05/16/2019 9:58:12 AM Referred By: Ryan Osuna Confirmed By:MARGARITA SANTANA MD
== END 2019-05-13 09:00 | disposition home or self-care (01) ==
LOC: CLSP 07:49 → ICU 11:10
PROVIDERS: Internal Medicine Cardiovascular Disease; Family Provider Family Medicine; PCP Family Medicine; Referring Provider Internal Medicine Cardiovascular Disease; Visit Provider Internal Medicine Cardiovascular Disease
DX: R94.39 Abnormal result of other cardiovascular function study (principal); R06.02 Shortness of breath; I12.9 Hypertensive chronic kidney disease with stage 1 through stage 4 chronic kidney disease, or unspecified chronic kidney disease; E78.5 Hyperlipidemia, unspecified; Z95.1 Presence of aortocoronary bypass graft; Z95.5 Presence of coronary angioplasty implant and graft; Z87.891 Personal history of nicotine dependence; Z79.82 Long term (current) use of aspirin; E11.22 Type 2 diabetes mellitus with diabetic chronic kidney disease; N18.3 Chronic kidney disease, stage 3 (moderate); G47.33 Obstructive sleep apnea (adult) (pediatric)
CPT/HCPCS: 36415; 71046; 80048; 80061; 82962; 83880; 85025; 85027; 85347; 92937; 93005; 93455; 99152; 99153; C1760; J7030; J7040; Q9967; C1725; C1769; C1874; C1884; C1887; C9604

== ENCOUNTER → 2020-12-16 14:03 | Outpatient (CLI) | payer MEDICARE, SELFPAY ==
[2020-12-16 13:08] VITALS: BMI 39.6
[2020-12-16 14:38] LABS: AST(SGOT) 17 U/L (15-37); Alanine Aminotransfer ALT/SGPT 27 U/L (16-61); Albumin, Serum 3.9 g/dL (3.2-5.0); Alkaline Phosphatase 46 U/L (45-117); Anion Gap 6 (5-15); BUN 15 mg/dL (7-18); CPK Total, Creatine Kinase 145 U/L (39-308); Calcium,Total 9.2 mg/dL (8.5-10.1); Chloride 108 mmol/L (98-107); Cholesterol 212 mg/dL (200); Creatinine, Serum 1.67 mg/dL (0.70-1.30); EST Glomerular Filtration Rate 44 mL/min (>60); Est Glom Filt Rate - Afr Amer 53 mL/min (>60); Globulin 3.9 g/dL (2.2-4.2); Glucose 141 mg/dL (74-106); High Density Lipoprotein 38 mg/dL; Potassium 4.1 mmol/L (3.5-5.1); Protein, Total 7.8 g/dL (6.4-8.2); Sodium Level 139 mmol/L (136-145); Triglycerides 220 mg/dL; Very Low Density Lipoprotein 44 mg/dL (5-40)
[2020-12-16 14:40] LABS: Hemoglobin A1c 6.3 % (3.8-5.6)
== END ==
PROVIDERS: PCP Family Medicine; Referring Provider Physician Assistant Medical; Visit Provider Physician Assistant Medical
DX: I25.10 Atherosclerotic heart disease of native coronary artery without angina pectoris (principal); I25.810 Atherosclerosis of coronary artery bypass graft(s) without angina pectoris; M79.10 Myalgia, unspecified site; E11.9 Type 2 diabetes mellitus without complications
CPT/HCPCS: 36415; 80053; 80061; 82550; 83036

== ENCOUNTER → 2022-06-09 | Outpatient (CLI) | payer MEDICARE, SELFPAY ==
--- NOTE | 2022-06-09 08:58 | CDU_ITS ---
Reason For Study: bruits Rt. Velocities/BP Lt. Velocities/BP Prox CCA 106.0/12.1 cm/sec. Prox CCA 125.5/29.4 cm/sec. Mid CCA 115.1/20.0 cm/sec. Mid CCA 99.6/22.0 cm/sec. Dist CCA 117.4/22.5 cm/sec. Dist CCA 95.9/14.6 cm/sec. Prox ICA 266.0/39.8 cm/sec. Prox ICA 254.1/53.7 cm/sec. Mid ICA 211.1/49.5 cm/sec. Mid ICA 200.1/28.8 cm/sec. Dist ICA 118.0/28.5 cm/sec. Dist ICA 142.5/26.1 cm/sec. Rt. ICA/CCA = 266.0/115.1=2.3. Lt. ICA/CCA = 254.1/99.6=2.6. Prox ECA 249.9/20.4 cm/sec. Prox ECA 295.1/26.8 cm/sec. Rt. Vert. 26.5/7.0 cm/sec. Lt. Vert. 70.3/11.3 cm/sec. Right Extracranial There is heterogeneous, irregular atherosclerotic plaque noted in the right common carotid artery. There is heterogeneous, irregular atherosclerotic plaque noted in the right internal carotid artery. There is heterogeneous, smooth atherosclerotic plaque noted in the right external carotid artery. Antegrade flow is noted in the right vertebral artery. There is heterogeneous, irregular atherosclerotic plaque noted in the right bulb. Left Extracranial There is heterogeneous, irregular atherosclerotic plaque noted in the left common carotid artery. There is heterogeneous, irregular atherosclerotic plaque noted in the left internal carotid artery. There is heterogeneous, irregular atherosclerotic plaque noted in the left external carotid artery. Antegrade flow is noted in the left vertebral artery. There is heterogeneous, irregular atherosclerotic plaque noted in the left bulb. Procedure Carotid Duplex [id number]. Exam performed in department. VL/Carotid Duplex Ultrasound Interpretation Summary Irregular calcific plaque with shadowing at the proximal right internal carotid artery with greater than 70% stenosis. Greater than 50% stenosis of the right external carotid artery Irregular calcific plaque with shadowing at the proximal left internal carotid artery with greater than 70% stenosis Greater than 50% stenosis left external carotid artery Patent and antegrade vertebral arteries bilaterally These findings are similar to a previous examination of August 21, 2018 althou gh at that time that study was interpreted as 50 to 69% stenosis bilateral internal carotid arteries which however by the current interpretive scale should be corrected to greater than 70% stenosis gemma aterally Ordering Physician: Nani Santillan Referring Physician: Fransisco Bourne Performed By: Kalee Morales, RDLEA, RVT
--- NOTE | 2022-06-09 08:58 | ECHOD_ITS ---
Reason For Study: CAD/ASHD Procedure This was a 2D Doppler, Color Flow transthoracic echocardiogram. The study was technically difficult. Definity deferred due to patient allergy to contrast dye. Exam performed in department. Left Ventricle Normal LV size. Moderate concentric left ventricular hypertrophy. Left ventricular systolic function is normal. The estimated ejection fraction is 60 %. Stage 1 diastolic dysfunction. No regional wall motion abnormalities noted. Right Ventricle Normal RV size. Normal systolic function. Atria The left atrium is moderately enlarged. The right atrium is mildly enlarged. Mitral Valve Normal mitral valve. Mild (1+) eccentric mitral valve insufficiency. Tricuspid Valve Normal tricuspid valve. Aortic Valve Trisinus/trileaflet aortic valve. Mild focal aortic valve calcification. Pulmonic Valve The pulmonic valve is not well visualized. Great Vessels Normal aortic root. The pulmonary artery is normal size. Normal inferior vena cava. Pericardium/Pleural No pericardial effusion. MMode/2D Measurements & Calculations LVIDd: 6.2 cm IVSd: 1.5 cm Ao root diam: 3.0 cm LVIDs: 4.5 cm LVPWd: 1.4 cm RVDd: 4.6 cm FS: 27.4 % LAV(MOD-bp): 102.4 ml LA A4 area: 28.7 cm2 LA dimension(2D): 4.8 cm LAV(MOD-bp) Indexed: 43.2 ml/m2 LAV(MOD-sp2): 105.2 ml LAV(MOD-sp4): 101.2 ml RA A4 area: 22.1 cm2 Time Measurements MV dec time: 0.21 sec Doppler Measurements & Calculations MV E max nick: 90.0 cm/sec Lat Peak E' Nick: 9.6 cm/sec Med Peak E' Nick: 4.8 cm/sec MV A max nick: 96.4 cm/sec E/E' lat: 9.4 E/E' med: 18.7 MV E/A: 0.93 MV V2 max: 110.0 cm/sec MV dec slope: 421.8 cm/sec2 Ao V2 max: 162.7 cm/sec MV max P.8 mmHg Ao max P.6 mmHg MV V2 mean: 72.6 cm/sec Ao V2 mean: 116.6 cm/sec MV mean P.4 mmHg Ao mean P.1 mmHg MV V2 VTI: 41.0 cm Ao V2 VTI: 40.1 cm LV V1 max: 112.1 cm/sec PA V2 max: 102.3 cm/sec LV V1 max P.0 mmHg LV V1 mean P.2 mmHg LV V1 mean: 85.5 cm/sec LV V1 VTI: 27.4 cm ECHO/Echo Complete Interpretation Summary Normal LV size. Left ventricular systolic function is normal. The estimated ejection fraction is 60 %. Stage 1 diastolic dysfunction. Moderate concentric left ventricular hypertrophy. The left atrium is moderately enlarged. The right atrium is mildly enlarged. Ordering Physician: Nani Santillan Referring Physician: Nani Santillan Performed By: Mai Welch RCS
== END | disposition home or self-care (01) ==
PROVIDERS: PCP Family Medicine; Referring Provider Physician Assistant Medical; Visit Provider Physician Assistant Medical
DX: I25.10 Atherosclerotic heart disease of native coronary artery without angina pectoris (principal); I65.23 Occlusion and stenosis of bilateral carotid arteries
CPT/HCPCS: 93306; 93880